=== PATIENT | male | born 1960 | race Caucasian/White ===

== ENCOUNTER 2020-07-22 22:43 | Observation (INO) ==
[2020-07-23 00:15] LABS: Basophils # 0.1 K/mcL (0.0-0.2); Basophils % 1.1 %; Eosinophils # 0.1 K/mcL (0.0-0.6); Eosinophils % 1.7 %; Hemoglobin 12.5 g/dL (12.9-16.9); Immature Granulocytes % 0.2 % (0-4); Lymphocytes # 2.8 K/mcL (0.6-4.6); Lymphocytes % 41.9 %; Mean Corpuscular HGB Conc 33.8 g/dL (31.6-35.5); Mean Corpuscular Hemoglobin 31.2 pg (28.0-33.3); Mean Corpuscular Volume 92.3 fL (83.0-100.0); Mean Platelet Volume 9.8 fL (9.4-12.4); Monocytes # 0.5 K/mcL (0.0-1.3); Monocytes % 7.9 %; Neutrophils # 3.1 K/mcL (1.6-8.9); Platelet Count 249 K/mcL (140-400); Red Blood Count 4.01 M/mcL (4.19-5.50); Red Cell Distribution Width 14.7 % (11.5-14.5); Segmented Neutrophils % 47.2 %; White Blood Count 6.6 K/mcL (4.3-11.1)
[2020-07-23 00:22] LABS: INR 1.2; Prothrombin Time 14.1 Seconds (9.4-12.1)
[2020-07-23 00:25] LABS: Activated Partial Thrombo Time 35.2 Seconds (26.0-36.0)
[2020-07-23 00:33] LABS: BUN/Creatinine Ratio 18 (6-26); Blood Urea Nitrogen 17 mg/dL (8-23); Calcium 10.1 mg/dL (8.6-10.3); Carbon Dioxide 20 mEq/L (23-29); Chloride 104 mEq/L (98-107); Glucose 181 mg/dL (70-105); Osmolality,Calculated 288 (280-300); Potassium 3.2 mEq/L (3.5-5.1); Sodium 136 mEq/L (136-145); eGFR For African Americans > 60 (> 60); eGFR For Non-African Americans > 60 (> 60)
[2020-07-23 00:34] LABS: Troponin I < 0.03 ng/mL (< 0.04)
[2020-07-23] MEDS ORDERED: *HR* Heparin 5,000 UNIT/ML VIAL IVP PRN ×2 (01:39)
[2020-07-23] MEDS ORDERED: *HR* Heparin 5,000 UNIT/ML VIAL IVP ONE (01:39)
[2020-07-23] MEDS ORDERED: Heparin 25,000UNIT/250ML 1/2NS 25,000 UNIT/250 ML IV.SOLN IVC SCH ×2 (01:45)
[2020-07-23] MEDS: Heparin 25,000UNIT/250ML 1/2NS 25,000 UNIT/250 ML IV.SOLN IVC SCH (03:01)
[2020-07-23] MEDS ORDERED: Perflutren Lipid Microsphere 1.3 ML in 0.9 % Sodium Chloride 8.7 ML IVP PRN (03:18)
[2020-07-23 03:19] LABS: Heparin anti-factor XA UFH < 0.04 IU/mL (0.30-0.70)
[2020-07-23 03:20] LABS: INR 1.3; Prothrombin Time 14.8 Seconds (9.4-12.1)
[2020-07-23] MEDS ORDERED: Mag Hydrox/Al Hydrox/Simeth 30 ML UDC PO PRN (07:47)
[2020-07-23] MEDS ORDERED: Ondansetron ODT 4 MG TAB.RAPDIS SL PRN (07:47)
[2020-07-23] MEDS ORDERED: Naloxone 0.4 MG/ML INJ IVP PRN (07:47)
[2020-07-23] MEDS ORDERED: Melatonin 3 MG TABLET PO PRN (07:47)
[2020-07-23 08:27] LABS: Hematocrit 35.2 % (37.5-50.1); Hemoglobin 11.6 g/dL (12.9-16.9); Mean Corpuscular Hemoglobin 30.6 pg (28.0-33.3); Mean Corpuscular Volume 92.9 fL (83.0-100.0); Platelet Count 225 K/mcL (140-400); Red Blood Count 3.79 M/mcL (4.19-5.50); Red Cell Distribution Width 14.7 % (11.5-14.5); White Blood Count 5.1 K/mcL (4.3-11.1)
[2020-07-23] MEDS: Loratadine 10 MG TABLET PO SCH (08:44)
[2020-07-23] MEDS: Aspirin Enteric Coated 81 MG Tablet PO SCH (08:44)
[2020-07-23] MEDS: BROMOCRIPTINE MESYLATE 0.8 MG PO SCH (08:46)
[2020-07-23] MEDS: (Icosapent Ethyl [Vascepa] 1 GM Capsule) PO SCH ×2 (08:47→20:28)
[2020-07-23] MEDS ORDERED: Dextrose Gel 15 GM/37.5 ML TUBE PO PRN ×2 (08:59)
[2020-07-23] MEDS ORDERED: *HR* Dextrose 50 % in Water (Vial) 50 ML VIAL IVP PRN (08:59)
[2020-07-23] MEDS ORDERED: D5% in Water 1,000 ML IVC PRN (08:59)
[2020-07-23] MEDS ORDERED: hydroCHLOROthiazide 25 MG TABLET PO SCH (09:00)
[2020-07-23 09:03] LABS: BUN/Creatinine Ratio 20 (6-26); Blood Urea Nitrogen 18 mg/dL (8-23); Calcium 9.8 mg/dL (8.6-10.3); Carbon Dioxide 24 mEq/L (23-29); Chloride 106 mEq/L (98-107); Glucose 141 mg/dL (70-105); Osmolality,Calculated 288 (280-300); Potassium 4.1 mEq/L (3.5-5.1); Sodium 137 mEq/L (136-145); eGFR For African Americans > 60 (> 60); eGFR For Non-African Americans > 60 (> 60)
[2020-07-23 09:47] LABS: Troponin I < 0.03 ng/mL (< 0.04)
[2020-07-23] MEDS: Insulin LISPRO 300 UNITS/3 ML VIAL SUBQ SCH ×2 (12:32→17:01)
[2020-07-23 13:00] LABS: Thyroid Stimulating Hormone 3.106 mcIU/mL (0.340-5.600)
[2020-07-23] MEDS ORDERED: Insulin LISPRO 300 UNITS/3 ML VIAL SUBQ SCH (21:00)
[2020-07-24] MEDS: Heparin 25,000UNIT/250ML 1/2NS 25,000 UNIT/250 ML IV.SOLN IVC SCH (02:08)
[2020-07-24 06:23] LABS: Hematocrit 35.2 % (37.5-50.1); Hemoglobin 11.9 g/dL (12.9-16.9); Mean Corpuscular HGB Conc 33.8 g/dL (31.6-35.5); Mean Corpuscular Hemoglobin 31.2 pg (28.0-33.3); Mean Corpuscular Volume 92.4 fL (83.0-100.0); Mean Platelet Volume 9.8 fL (9.4-12.4); Platelet Count 217 K/mcL (140-400); Red Blood Count 3.81 M/mcL (4.19-5.50); Red Cell Distribution Width 14.7 % (11.5-14.5); White Blood Count 4.7 K/mcL (4.3-11.1)
[2020-07-24 06:45] LABS: BUN/Creatinine Ratio 20 (6-26); Blood Urea Nitrogen 19 mg/dL (8-23); Calcium 9.1 mg/dL (8.6-10.3); Carbon Dioxide 24 mEq/L (23-29); Chloride 107 mEq/L (98-107); Glucose 139 mg/dL (70-105); Osmolality,Calculated 291 (280-300); Potassium 4.1 mEq/L (3.5-5.1); Sodium 138 mEq/L (136-145); eGFR For African Americans > 60 (> 60); eGFR For Non-African Americans > 60 (> 60)
[2020-07-24] MEDS: Insulin LISPRO 300 UNITS/3 ML VIAL SUBQ SCH ×2 (07:59→12:44)
[2020-07-24] MEDS: BROMOCRIPTINE MESYLATE 0.8 MG PO SCH (08:00)
[2020-07-24] MEDS: (Icosapent Ethyl [Vascepa] 1 GM Capsule) PO SCH (08:00)
[2020-07-24] MEDS ORDERED: Regadenoson 0.4 MG/5 ML SYRINGE IVP ONE (08:28)
[2020-07-24 10:46] LABS: Estimated Average Glucose 128 mg/dl; Hemoglobin A1C 6.1 %
[2020-07-24] MEDS: Aspirin Enteric Coated 81 MG Tablet PO SCH (10:53)
[2020-07-24] MEDS: Loratadine 10 MG TABLET PO SCH (10:53)
[2020-07-24 12:01] VITALS: BP 129/74
[2020-07-24] MEDS ORDERED: Apixaban 5 MG TABLET PO SCH (21:00)
== END 2020-07-24 15:19 | disposition home or self-care (01) ==
LOC: EMEROOARM 22:43 → CDU 22:43 → SUATTDRO 07-23 03:55 → CDU 07-23 04:20 → 3BNU 07-23 17:31
PROVIDERS: ADMIT Family Medicine; ATTEND Internal Medicine

== ENCOUNTER 2021-06-13 13:17 | Observation (INO) ==
[2021-06-13] MEDS ORDERED: 0.9 % Sodium Chloride 1,000 ML IVC ONE (14:05)
[2021-06-13] MEDS ORDERED: Ondansetron 4 MG/2 ML VIAL IVP ONE (14:06)
[2021-06-13 14:28] LABS: Basophils % 0.6 %; Eosinophils # 0.1 K/mcL (0.0-0.6); Eosinophils % 1.9 %; Hematocrit 25.7 % (37.5-50.1); Hemoglobin 8.6 g/dL (12.9-16.9); Immature Granulocytes % 0.2 % (0-4); Lymphocytes # 1.7 K/mcL (0.6-4.6); Lymphocytes % 35.8 %; Mean Corpuscular HGB Conc 33.5 g/dL (31.6-35.5); Mean Corpuscular Hemoglobin 31.2 pg (28.0-33.3); Mean Corpuscular Volume 93.1 fL (83.0-100.0); Mean Platelet Volume 10.4 fL (9.4-12.4); Monocytes # 0.4 K/mcL (0.0-1.3); Monocytes % 9.2 %; Neutrophils # 2.5 K/mcL (1.6-8.9); Platelet Count 183 K/mcL (140-400); Red Blood Count 2.76 M/mcL (4.19-5.50); Red Cell Distribution Width 19.3 % (11.5-14.5); Segmented Neutrophils % 52.3 %; White Blood Count 4.8 K/mcL (4.3-11.1)
[2021-06-13 14:38] LABS: INR 1.7
[2021-06-13 14:55] LABS: Alanine Aminotransferase 52 Units/L (7-52); Albumin/Globulin Ratio 1.3 (1.1-2.2); Alkaline Phosphatase 38 Units/L (34-104); Aspartate Amino Transferase 87 Units/L (13-39); BUN/Creatinine Ratio 15 (6-26); Bilirubin,Total 0.9 mg/dL (0.3-1.0); Blood Urea Nitrogen 30 mg/dL (8-23); Calcium 9.4 mg/dL (8.6-10.3); Carbon Dioxide 17 mEq/L (23-29); Chloride 104 mEq/L (98-107); Glucose 240 mg/dL (70-105); Osmolality,Calculated 282 (280-300); Potassium 5.3 mEq/L (3.5-5.1); Sodium 129 mEq/L (136-145); eGFR For African Americans 42 (> 60); eGFR For Non-African Americans 34 (> 60)
[2021-06-13 15:27] LABS: Bilirubin,Urine Negative (Negative); Blood,Urine Negative (Negative); Clarity,Urine Clear (Clear); Color,Urine Colorless (Yellow); Glucose,Urine (UA) Normal (Normal); Hyaline Casts,Urine Few per lpf (None Seen); Ketones,Urine Negative (Negative); Leukocyte Esterase,Urine Negative (Negative); Mucus,Urine Few per lpf (None-Few); Nitrite,Urine Negative (Negative); PH,Urine 5.5 pH Units (5.0-8.0); Protein,Urine Negative (Neg-Trace); Urobilinogen,Urine Normal (Normal); WBC,Urine 0-3 per hpf (0-3)
[2021-06-13 16:31] LABS: Ethanol < 10 mg/dL (Less than 10)
[2021-06-13 16:39] LABS: Amphetamine Screen,Urine Negative ng/mL (Cutoff=1000); Barbiturate Screen,Urine Negative ng/mL (Cutoff=200); Benzodiazepines Screen,Urine Negative ng/mL (Cutoff=200); Cannabinoid Screen,Urine Negative ng/mL (Cutoff = 50); Cocaine Screen,Urine Negative ng/mL (Cutoff= 300); Opiate Screen,Urine Negative ng/mL (Cutoff=300); Phencyclidine Screen,Urine Negative ng/mL (Cutoff=25)
[2021-06-13] MEDS ORDERED: SODIUM ZIRCONIUM CYCLOSILICATE 5 GM POWD.PACK PO ONE (18:32)
[2021-06-13 19:24] LABS: Influenza A PCR Negative (Negative); Influenza B PCR Negative (Negative); Resp. Syncytial Virus PCR Negative (Negative)
[2021-06-13 19:31] LABS: SARS-CoV-2 by PCR (In House) Negative (Negative)
[2021-06-13] MEDS ORDERED: Acetaminophen 325 MG TABLET PO PRN (19:35)
[2021-06-13] MEDS ORDERED: Melatonin 3 MG TABLET PO PRN (19:35)
[2021-06-13] MEDS ORDERED: Naloxone 0.4 MG/ML INJ IVP PRN (19:35)
[2021-06-13] MEDS: 0.9 % Sodium Chloride 1,000 ML IVC SCH (20:06)
[2021-06-13] MEDS ORDERED: *HR* Dextrose 50 % in Water (Syg) 50 ML SYRINGE IVP PRN (21:12)
[2021-06-13] MEDS ORDERED: Dextrose 4 GM Chewable Tablets PO PRN ×2 (21:12)
[2021-06-13] MEDS ORDERED: D5% in Water 1,000 ML IVC PRN (21:12)
[2021-06-13 23:21] LABS: Iron 95 mcg/dL (65-175)
[2021-06-13 23:39] LABS: Ferritin 57 ng/mL (20-250)
[2021-06-13 23:44] LABS: Folate 7.8 ng/mL (3.0-16.0)
[2021-06-13 23:49] LABS: Vitamin B12 > 1500 pg/mL (250-1100)
[2021-06-14 01:26] LABS: Hemoglobin 8.1 g/dL (12.9-16.9); Mean Corpuscular HGB Conc 32.4 g/dL (31.6-35.5); Mean Corpuscular Hemoglobin 30.2 pg (28.0-33.3); Mean Corpuscular Volume 93.3 fL (83.0-100.0); Mean Platelet Volume 10.5 fL (9.4-12.4); Platelet Count 167 K/mcL (140-400); Red Blood Count 2.68 M/mcL (4.19-5.50); Red Cell Distribution Width 19.4 % (11.5-14.5); White Blood Count 4.4 K/mcL (4.3-11.1)
[2021-06-14 01:34] LABS: INR 1.5; Prothrombin Time 16.6 Seconds (9.4-12.1)
[2021-06-14 01:51] LABS: Albumin 3.6 g/dL (3.5-5.7); Albumin/Globulin Ratio 1.2 (1.1-2.2); Bilirubin,Total 0.9 mg/dL (0.3-1.0); Calcium 8.9 mg/dL (8.6-10.3); Phosphorous 3.9 mg/dL (2.7-4.5); Potassium 4.7 mEq/L (3.5-5.1); Total Protein 6.6 g/dL (6.4-8.9)
[2021-06-14 02:01] LABS: Thyroid Stimulating Hormone 1.528 mcIU/mL (0.340-5.600)
[2021-06-14 04:53] LABS: % Iron Saturation 15 % (20-55); Transferrin 455 mg/dL (203-362)
[2021-06-14 05:18] LABS: Protein/Creatinine Ratio,Urine 0.16 mg/mg (0.00-0.20); Sodium, Urine 116.6 mEq/L
[2021-06-14] MEDS: 0.9 % Sodium Chloride 1,000 ML IVC SCH (05:52)
[2021-06-14] MEDS ORDERED: Iron Sucrose Complex 400 MG in 0.9 % Sodium Chloride 250 ML IVPB ONE (06:00)
[2021-06-14 06:15] LABS: Estimated Average Glucose 114 mg/dl; Hemoglobin A1C 5.6 %
[2021-06-14] MEDS ORDERED: *HR* Pioglitazone 45 MG TABLET PO SCH (08:00)
[2021-06-14] MEDS: Insulin LISPRO 300 UNITS/3 ML VIAL SUBQ SCH ×2 (08:17→12:17)
[2021-06-14] MEDS ORDERED: Aspirin Enteric Coated 81 MG Tablet PO SCH (09:00)
[2021-06-14] MEDS ORDERED: NON-FORMULARY MEDICATION 1 EACH EACH (Cholecalciferol (Vitamin D3) [Vitamin D3] 25 MCG Cap PO SCH (09:00)
[2021-06-14] MEDS ORDERED: Apixaban 5 MG TABLET PO SCH (09:00)
[2021-06-14] MEDS ORDERED: BROMOCRIPTINE MESYLATE 0.8 MG PO SCH (09:00)
[2021-06-14 10:56] VITALS: BP 107/56; PULSE 67; TEMP 98.3
[2021-06-14 13:35] VITALS: O2SAT 96
[2021-06-14] MEDS ORDERED: Insulin LISPRO 300 UNITS/3 ML VIAL SUBQ SCH (21:00)
== END 2021-06-14 15:00 | disposition home or self-care (01) ==
LOC: EMEROOARM 13:17 → 2ANU 13:17 → SUATTDRO 19:32 → 2ANU 20:33
PROVIDERS: ADMIT Internal Medicine; ATTEND Internal Medicine